=== PATIENT | female | born 1980 | race Caucasian/White ===

== ENCOUNTER → 2024-04-22 16:55 | Outpatient (REF) | payer BC, SELFPAY ==
[2024-04-22 17:17] LABS: Urine Albumin Negative (Neg - Trace); Urine Bilirubin Negative (Negative); Urine Character Clear (Clear); Urine Color Yellow; Urine Glucose Negative (Negative); Urine Ketone Negative (Negative); Urine Leukocyte Negative (Negative); Urine Nitrite Negative (Negative); Urine Occult Blood Negative (Negative); Urine Specific Gravity 1.025 (<1.030); Urine Urobilinogen Negative (Neg - 1+)
[2024-04-22 17:21] LABS: Hematocrit 42.3 % (37.0-47.0); Hemoglobin 13.6 g/dL (12.0-16.0); Mean Corp Hgb Conc. 32.2 g/dL (33.0-37.0); Mean Corpuscular Hgb 30.6 pg (27.0-31.0); Mean Corpuscular Volume 95.3 fL (81.0-99.0); Mean Platelet Volume 10.3 fL (7.4-10.4); Platelet Count 314 10^3/uL (130-400); Red Blood Cell Count 4.44 10^6/uL (4.20-5.40); Red Cell Dist. Width 12.5 % (11.5-14.5); White Blood Cell Count 6.6 10^3/uL (4.8-10.8)
[2024-04-22 17:25] LABS: ALT (SGPT) 29 U/L (0-35); AST (SGOT) 27 U/L (14-36); Albumin 4.6 g/dl (3.5-5.0); Alkaline Phosphatase 106 U/L (38-126); Blood Urea Nitrogen 25 mg/dl (7-17); Carbon Dioxide 28 mmol/L (22-30); Chloride 104 mmol/L (98-107); Glucose 94 mg/dl (70-99); HDL Cholesterol 55 mg/dl; LDL Cholesterol, Calculated 155 mg/dl; Sodium 144 mmol/L (135-145); Total Bilirubin 0.3 mg/dl (0.2-1.3); Total Cholesterol 240 mg/dl (50-199); Total Protein 7.8 g/dl (6.3-8.2); Triglyceride 151 mg/dl (10-149); Very Low Density Lipoprotein 30 mg/dl (0-30); eGFR > 60.00
[2024-04-22 17:31] LABS: Potassium 5.1 mmol/L (3.5-5.1)
[2024-04-22 17:42] LABS: Free T4 0.94 ng/dl (0.78-2.19)
[2024-04-22 18:00] LABS: Ferritin 58.5 ng/ml (6.24-137)
[2024-04-22 18:32] LABS: Folate 4.6 ng/ml (2.76-20); Vitamin B12 596 pg/ml (239-931)
[2024-04-23 11:39] LABS: Glycohemoglobin (HgbA1c) 5.3 % (4.0-5.6)
[2024-04-25 04:02] LABS: Vitamin D 1,25 Dihydroxy 29.7 pg/mL (19.9-79.3)
[2024-04-25 08:51] LABS: ANA, IgG Reflex to HEp-2 None Detected (None Detected)
== END ==
LOC: CLAB 16:55
PROVIDERS: ATTENDING PHYSICIAN Nurse Practitioner Family
DX: E03.9 Hypothyroidism, unspecified (principal); R53.82 Chronic fatigue, unspecified; Z13.1 Encounter for screening for diabetes mellitus; Z13.220 Encounter for screening for lipoid disorders; Z13.0 Encounter for screening for diseases of the blood and blood-forming organs and certain disorders involving the immune mechanism
CPT/HCPCS: 36415; 80053; 80061; 81003; 82607; 82652; 82728; 82746; 83036; 84439; 84443; 84481; 85027; 86038; 86376; 86618

== ENCOUNTER → 2024-05-31 15:59 | Outpatient (REF) | payer BC, SELFPAY | LOC: RCS 15:59 | PROVIDERS: ATTENDING PHYSICIAN Nurse Practitioner Family | DX: R01.1 Cardiac murmur, unspecified (principal) | CPT/HCPCS: 93306 ==

== ENCOUNTER → 2024-07-27 15:54 | Outpatient (REF) | payer BC, SELFPAY | LOC: CLAB 15:54 | PROVIDERS: ATTENDING PHYSICIAN Nurse Practitioner Family | DX: E03.9 Hypothyroidism, unspecified (principal) | CPT/HCPCS: 36415; 84443 ==

== ENCOUNTER → 2025-02-16 10:18 | Outpatient (REF) | payer BC, SELFPAY | LOC: WDC 10:18 | PROVIDERS: ATTENDING PHYSICIAN Nurse Practitioner Family | DX: N64.4 Mastodynia (principal); N63.22 Unspecified lump in the left breast, upper inner quadrant | CPT/HCPCS: 76642; 77062; 77066 ==